=== PATIENT | male | born 1985 | race Caucasian/White ===

== ENCOUNTER 2017-05-30 03:02 | Emergency (ER) | payer MEDICAID ==
[~2017-05-30] VITALS: Ht 152.4 cm; Wt 114.5 kg
[~2017-05-30 03:02] MED LIST: NO HOME MEDS
[2017-05-30 03:56] LABS: BASOPHILS # (AUTO) 0.1 X10'3 (0-0.2); BASOPHILS % (AUTO) 0.7 % (0-1); EOSINOPHILS # (AUTO) 0.1 X10'3 (0-0.9); EOSINOPHILS % (AUTO) 1.8 % (0-6); HEMATOCRIT 48.5 % (42.0-52.0); HEMOGLOBIN 16.8 g/dl (14.0-17.9); LYMPHOCYTES # (AUTO) 2.8 X10'3 (1.1-4.8); LYMPHOCYTES % (AUTO) 37.8 % (21-51); MEAN CORPUSCULAR HEMOGLOBIN 31.9 PG (27.0-31.0); MEAN CORPUSCULAR HGB CONC 34.7 % (33.0-36.5); MEAN CORPUSCULAR VOLUME 91.9 FL (78-98); MEAN PLATELET VOLUME 8.1 FL (7.4-10.4); MONOCYTES # (AUTO) 0.9 X10'3 (0-0.9); MONOCYTES % (AUTO) 12.2 % (2-12); NEUTROPHILS # (AUTO) 3.5 X10'3 (1.8-7.7); NEUTROPHILS % (AUTO) 47.5 % (42-75); PLATELET COUNT 246 X10'3 (140-440); RED BLOOD COUNT 5.27 X10'6 (4.70-6.10); RED CELL DISTRIBUTION WIDTH 13.4 % (11.5-14.5); WHITE BLOOD COUNT 7.4 X10'3 (4.5-11.0)
[2017-05-30 04:11] LABS: PARTIAL THROMBOPLASTIN TIME 25 SECONDS (22-32); PROTHROMBIN TIME 10.4 SECONDS (9.0-12.0)
[2017-05-30 04:20] LABS: ALANINE AMINOTRANSFERASE 83 U/L (12-78); ALBUMIN 3.9 G/DL (3.4-5.0); ALBUMIN/GLOBULIN RATIO 1.1 (1.1-1.5); ALKALINE PHOSPHATASE 70 IU/L (46-116); ANION GAP 8 (8-16); ASPARTATE AMINO TRANSFERASE 29 U/L (10-37); BILIRUBIN,TOTAL 0.4 MG/DL (0.1-1.0); BLOOD UREA NITROGEN 15 MG/DL (7-18); BUN/CREATININE RATIO 16.7 (5.4-32.0); CALCIUM 8.8 MG/DL (8.5-10.1); CHLORIDE 103 MMOL/L (99-107); GLUCOSE 100 MG/DL (70-104); POTASSIUM 3.9 MMOL/L (3.5-5.1); SODIUM 140 MMOL/L (135-145); TOTAL CARBON DIOXIDE 28.8 MMOL/L (24-32); TOTAL PROTEIN 7.3 G/DL (6.4-8.2); eGFR > 90 ML/MIN
[2017-05-30 05:17] VITALS: BP 140/76
== END 2017-05-30 05:18 | disposition home or self-care (01) ==
LOC: ER 03:02
DX: R07.89 Other chest pain (principal); Z88.0 Allergy status to penicillin
CPT/HCPCS: 36415; 71045; 80053; 84484; 85025; 85610; 85730; 93005; 99285

== ENCOUNTER 2017-06-13 20:57 | Emergency (ER) | payer MEDICAID ==
[~2017-06-13] VITALS: Ht 167.6 cm; Wt 102.7 kg
[2017-06-13 23:32] VITALS: BP 145/92
== END 2017-06-13 23:35 | disposition home or self-care (01) ==
LOC: ER 20:57
DX: R07.9 Chest pain, unspecified (principal); Z88.0 Allergy status to penicillin
CPT/HCPCS: 36415; 71045; 84484; 93005; 99285

== ENCOUNTER 2019-07-01 07:22 | Emergency (ER) | payer MEDICAID ==
[~2019-07-01] VITALS: Ht 167.6 cm; Wt 90.3 kg
[~2019-07-01 07:22] MED LIST changes: +PANT-47 PO; +SUCR1TAB34 PO
[2019-07-01 07:28] VITALS: BP 135/79
== END 2019-07-01 07:55 | disposition home or self-care (01) ==
LOC: ER 07:23
DX: K40.90 Unilateral inguinal hernia, without obstruction or gangrene, not specified as recurrent (principal); K59.00 Constipation, unspecified; Z88.0 Allergy status to penicillin; Z91.018 Allergy to other foods
CPT/HCPCS: 99281

== ENCOUNTER 2021-06-29 16:34 | Emergency (ER) | payer MEDICAID ==
[~2021-06-29] VITALS: Ht 165.1 cm; Wt 95.5 kg
[2021-06-29 16:49] VITALS: BP 145/89
[2021-06-29] MEDS ORDERED: ORPH100T2 PO (18:07)
[2021-06-29] MEDS ORDERED: HYDR-3972 PO (18:07)
== END 2021-06-29 18:15 | disposition home or self-care (01) ==
LOC: ER 16:35
DX: S39.012A Strain of muscle, fascia and tendon of lower back, initial encounter (principal); M54.42 Lumbago with sciatica, left side; X58.XXXA Exposure to other specified factors, initial encounter; Y93.89 Activity, other specified; Y92.89 Other specified places as the place of occurrence of the external cause; Y99.8 Other external cause status; Z88.0 Allergy status to penicillin; Z88.8 Allergy status to other drugs, medicaments and biological substances
CPT/HCPCS: 99283

== ENCOUNTER 2022-05-17 11:37 | Emergency (ER) | payer MEDICAID ==
[~2022-05-17] VITALS: Ht 165.1 cm; Wt 104.0 kg
[~2022-05-17 11:37] MED LIST changes: +ONDA4TAB12 PO; +ORPH100T2 PO
[2022-05-17 11:46] VITALS: BP 132/76
[2022-05-17] MEDS ORDERED: diphenhydrAMINE 25mg capsule PO ONE (12:25)
[2022-05-17] MEDS ORDERED: DOXY100C76 PO (12:27)
== END 2022-05-17 12:42 | disposition home or self-care (01) ==
LOC: ER 11:38
DX: L25.3 Unspecified contact dermatitis due to other chemical products (principal); T36.8X5A Adverse effect of other systemic antibiotics, initial encounter; Y92.89 Other specified places as the place of occurrence of the external cause; Z88.0 Allergy status to penicillin; Z88.8 Allergy status to other drugs, medicaments and biological substances; Z79.899 Other long term (current) drug therapy
CPT/HCPCS: 99283; Q0163